=== PATIENT | male | born 1945 | race African-American/Black ===

== ENCOUNTER 2017-02-17 06:42 | Inpatient (IN) | payer MEDICARE, MEDICAID ==
[~2017-02-17] VITALS: Ht 177.8 cm; Wt 85.7 kg
[2017-02-17] MEDS ORDERED: MORPHINE SULFATE 4 MG/ML CPJ (NOT FOR IM USE) IV STA (07:12)
[2017-02-17] MEDS ORDERED: ONDANSETRON HCL 4MG/2ML VIAL IV STA (07:12)
[2017-02-17] MEDS ORDERED: ASPIRIN 81MG TABLET PO STA (07:12)
[2017-02-17 07:31] LABS: EOSINOPHILS % 3.4 % (0.0-5.0); HEMATOCRIT. 46.3 % (42.0-52.0); HEMOGLOBIN. 15.7 g/dL (14.0-18.0); LYMPHOCYTES % 22.6 % (20.0-50.0); MEAN CORPUSCULAR HEMOGLOBIN 30.8 pg (28.0-32.0); MEAN CORPUSCULAR VOLUME 90.9 fL (80.0-94.0); MEAN PLATELET VOLUME 8.2 fl (7.4-10.4); MONOCYTES % 9.1 % (2.0-8.0); NEUTROPHILS % 63.9 % (40.0-76.0); PLATELET 238 x1000/uL (130-400); RED BLOOD CELL COUNT 5.09 mill/uL (4.7-6.1); RED CELL DISTRIBUTION WIDTH 13.5 % (11.6-14.6)
[2017-02-17 07:44] LABS: D-DIMER 1.74 mg/L FEU (<0.50); INR 1.1; PARTIAL THROMBOPLASTIN TIME 26.9 sec (23.4-31.0); PROTHROMBIN TIME 11.3 sec (9.4-11.6)
[2017-02-17 07:49] LABS: CARBON DIOXIDE 27 mEq/L (21-32); CHLORIDE 106 mEq/L (98-107); TROPONIN I < 0.02 ng/mL (0.00-0.04)
[2017-02-17] MEDS ORDERED: IOHEXOL-350 100 ML BOTTLE ONE (11:44)
[2017-02-17 12:00] VITALS: BP 112/70
[2017-02-17 12:10] VITALS: BP 112/70
[2017-02-17] MEDS: AMLODIPINE 2.5MG TABLET PO SCH (14:19)
[2017-02-17] MEDS: ENOXAPARIN 40MG/0.4ML SYR SUBCUT SCH (14:20)
[2017-02-17 16:00] VITALS: BP 98/70
[2017-02-17] MEDS ORDERED: ONDANSETRON HCL 4MG/2ML VIAL IV PRN (17:00)
[2017-02-17] MEDS ORDERED: IPRATROPIUM/ALBUTEROL 0.5-3(2.5)MG/3ML NEB INH PRN (17:00)
[2017-02-17] MEDS ORDERED: DIPHENHYDRAMINE 50MG/ML VIAL IV PRN (17:00)
[2017-02-17] MEDS ORDERED: ACETAMINOPHEN 325MG TABLET PO PRN (17:00)
[2017-02-17] MEDS ORDERED: CLONIDINE 0.1MG TABLET PO PRN (17:00)
[2017-02-17] MEDS ORDERED: HYDROCODONE/APAP 7.5/325MG 1 TAB TABLET PO PRN (17:00)
[2017-02-17 20:00] VITALS: BP 105/71
[2017-02-17 20:21] VITALS: BP 105/71
[2017-02-18] VITALS: BP 135/103
[2017-02-18 04:00] VITALS: BP 114/84
[2017-02-18 06:12] LABS: BASOPHILS % 0.7 % (0.0-2.0); EOSINOPHILS % 3.5 % (0.0-5.0); HEMATOCRIT. 44.2 % (42.0-52.0); LYMPHOCYTES % 23.3 % (20.0-50.0); MEAN CORPUSCULAR HEMOGLOBIN 31.1 pg (28.0-32.0); MEAN CORPUSCULAR VOLUME 91.5 fL (80.0-94.0); MEAN PLATELET VOLUME 8.3 fl (7.4-10.4); NEUTROPHILS % 61.5 % (40.0-76.0); PLATELET 221 x1000/uL (130-400); RED BLOOD CELL COUNT 4.83 mill/uL (4.7-6.1); RED CELL DISTRIBUTION WIDTH 13.7 % (11.6-14.6)
[2017-02-18 06:19] LABS: CLARITY URINE CLEAR (CLEAR); COLOR URINE YELLOW (YELLOW); GLUCOSE URINE NEGATIVE (NEGATIVE); KETONES URINE NEGATIVE (NEGATIVE); LEUKOCYTE ESTERASE URINE NEGATIVE (NEGATIVE); NITRITE URINE NEGATIVE (NEGATIVE); OCCULT BLOOD URINE NEGATIVE (NEGATIVE); PH URINE 7.5 (4.5-8.0); PROTEIN URINE NEGATIVE (NEGATIVE); UROBILINOGEN URINE 0.2 E.U./dL (0.2-1.0)
[2017-02-18 06:36] LABS: *AMPHETAMINES SCREEN URINE NEGATIVE (NEGATIVE); *BARBITURATES SCREEN URINE NEGATIVE (NEGATIVE); *BENZODIAZEPINES SCREEN URINE NEGATIVE (NEGATIVE); *COCAINE SCREEN URINE NEGATIVE (NEGATIVE); CANNABINOID URINE SCREEN NEGATIVE (NEGATIVE); METHADONE URINE SCREEN NEGATIVE (NEGATIVE); OPIATES URINE SCREEN NEGATIVE (NEGATIVE); PHENCYCLIDINE URINE SCREEN NEGATIVE (NEGATIVE)
[2017-02-18] MEDS ORDERED: REGADENOSON 0.4 MG/5 ML IV SCH (07:15)
[2017-02-18 08:00] VITALS: BP 112/74
[2017-02-18 08:17] LABS: CARBON DIOXIDE 29 mEq/L (21-32); CHLORIDE 102 mEq/L (98-107); HDL CHOLESTEROL 39 mg/dL (40-59); LDL CHOLESTEROL 74 mg/dL (5-100); TROPONIN I < 0.02 ng/mL (0.00-0.04)
[2017-02-18] MEDS ORDERED: ASPIRIN 325MG EC TABLET PO SCH (09:00)
[2017-02-18] MEDS ORDERED: REGADENOSON 0.4 MG/5 ML IV ONE (09:41)
[2017-02-18] MEDS: AMLODIPINE 2.5MG TABLET PO SCH (10:55)
[2017-02-18] MEDS: ENOXAPARIN 40MG/0.4ML SYR SUBCUT SCH (10:55)
[2017-02-18 12:00] VITALS: BP 117/71
[2017-02-18 12:17] VITALS: BP 112/80
== END 2017-02-18 14:46 | disposition home or self-care (01) | DRG 206 ==
LOC: ER 07:15 → ENRESERV 09:59 → 7WST 11:06 → EDBEDREQ 11:08 → EDBEDREQTM 11:08
PROVIDERS: ADMIT Internal Medicine; ATTEND Internal Medicine
DX: M94.0 Chondrocostal junction syndrome [Tietze] (principal); I11.9 Hypertensive heart disease without heart failure; I24.9 Acute ischemic heart disease, unspecified; D63.8 Anemia in other chronic diseases classified elsewhere; R79.1 Abnormal coagulation profile; Z86.73 Personal history of transient ischemic attack (TIA), and cerebral infarction without residual deficits; Z88.0 Allergy status to penicillin; Z90.49 Acquired absence of other specified parts of digestive tract
CPT/HCPCS: 36415; 71010; 71275; 78452; 80048; 80053; 80061; 80305; 81003; 83690; 83880; 84443; 84484; 85025; 85379; 85610; 85730; 87040; 87086; 93005; 93017; 93306; 93970; 96374; 99285; A9500; J1650; J2270; J2405; J2785; Q9967

== ENCOUNTER 2017-05-25 07:57 | Emergency (ER) | payer MEDICARE, MEDICAID ==
[~2017-05-25] VITALS: Ht 177.8 cm; Wt 83.0 kg
[2017-05-25 10:16] VITALS: BP 115/73
[2017-05-25] MEDS ORDERED: ACETAMINOPHEN 500MG TABLET PO ONE (11:00)
== END 2017-05-25 11:12 | disposition home or self-care (01) ==
LOC: ER 08:22
DX: S39.012A Strain of muscle, fascia and tendon of lower back, initial encounter (principal); N40.0 Benign prostatic hyperplasia without lower urinary tract symptoms; Z88.0 Allergy status to penicillin; Z90.49 Acquired absence of other specified parts of digestive tract; X58.XXXA Exposure to other specified factors, initial encounter; Y93.89 Activity, other specified; Y92.89 Other specified places as the place of occurrence of the external cause; Y99.8 Other external cause status
CPT/HCPCS: 99282

== ENCOUNTER 2018-06-26 11:48 | Inpatient (IN) | payer MEDICARE, MEDICAID ==
[~2018-06-26] VITALS: Ht 177.8 cm; Wt 85.3 kg
[2018-06-26] MEDS ORDERED: SODIUM CHLORIDE 0.9% 500 ML IV ONE (14:57)
[2018-06-26 15:55] LABS: CHLORIDE 103 mEq/L (98-107)
[2018-06-26 15:57] LABS: BASOPHILS % 0.3 % (0.0-2.0); EOSINOPHILS % 0.2 % (0.0-5.0); HEMATOCRIT. 45.5 % (42.0-52.0); HEMOGLOBIN. 15.7 g/dL (14.0-18.0); INR 1.1; LYMPHOCYTES % 11.1 % (20.0-50.0); MEAN CORPUSCULAR HEMOGLOBIN 31.5 pg (28.0-32.0); MEAN CORPUSCULAR VOLUME 91.4 fL (80.0-94.0); MEAN PLATELET VOLUME 8.3 fl (7.4-10.4); MONOCYTES % 5.8 % (2.0-8.0); NEUTROPHILS % 82.6 % (40.0-76.0); PARTIAL THROMBOPLASTIN TIME 25.4 sec (23.4-31.0); PLATELET 177 x1000/uL (130-400); PROTHROMBIN TIME 10.7 sec (9.1-11.1); RED BLOOD CELL COUNT 4.98 mill/uL (4.7-6.1); RED CELL DISTRIBUTION WIDTH 13.9 % (11.6-14.6)
[2018-06-26 15:59] LABS: ETHANOL BLOOD < 10 mg/dL
[2018-06-26 16:03] LABS: CREATINE KINASE 44 IU/L (39-308)
[2018-06-26] MEDS ORDERED: ACETAMINOPHEN 325MG TABLET PO PRN (17:00)
[2018-06-26] MEDS ORDERED: ONDANSETRON HCL 4MG/2ML INJ IV PRN (17:00)
[2018-06-26 20:43] LABS: CLARITY URINE CLEAR (CLEAR); COLOR URINE YELLOW (YELLOW); KETONES URINE TRACE (NEGATIVE); LEUKOCYTE ESTERASE URINE NEGATIVE (NEGATIVE); NITRITE URINE NEGATIVE (NEGATIVE); OCCULT BLOOD URINE NEGATIVE (NEGATIVE); PH URINE 6.5 (4.5-8.0); PROTEIN URINE NEGATIVE (NEGATIVE); SPECIFIC GRAVITY URINE 1.018 (1.005-1.030); UROBILINOGEN URINE 0.2 E.U./dL (0.2-1.0)
[2018-06-26 20:55] LABS: *BARBITURATES SCREEN URINE NEGATIVE (NEGATIVE)
[2018-06-26 20:57] LABS: *AMPHETAMINES SCREEN URINE NEGATIVE (NEGATIVE); *BENZODIAZEPINES SCREEN URINE NEGATIVE (NEGATIVE); *COCAINE SCREEN URINE NEGATIVE (NEGATIVE); CANNABINOID URINE SCREEN NEGATIVE (NEGATIVE); METHADONE URINE SCREEN NEGATIVE (NEGATIVE); OPIATES URINE SCREEN NEGATIVE (NEGATIVE); PHENCYCLIDINE URINE SCREEN NEGATIVE (NEGATIVE)
[2018-06-27] VITALS (7 sets, daily range): BP systolic 113–164; BP diastolic 67–94
[2018-06-27 07:03] LABS: BASOPHILS % 0.7 % (0.0-2.0); EOSINOPHILS % 2.2 % (0.0-5.0); LYMPHOCYTES % 19.7 % (20.0-50.0); MEAN CORPUSCULAR HEMOGLOBIN 31.2 pg (28.0-32.0); MEAN CORPUSCULAR VOLUME 91.3 fL (80.0-94.0); MEAN PLATELET VOLUME 8.8 fl (7.4-10.4); MONOCYTES % 9.7 % (2.0-8.0); NEUTROPHILS % 67.7 % (40.0-76.0); PLATELET 169 x1000/uL (130-400); RED CELL DISTRIBUTION WIDTH 13.6 % (11.6-14.6)
[2018-06-27 07:12] LABS: CHLORIDE 108 mEq/L (98-107)
[2018-06-27] MEDS ORDERED: REGADENOSON 0.4 MG/5 ML IV ONE (12:15)
[2018-06-27] MEDS ORDERED: MEMA5TAB7 PO (13:02)
[2018-06-27] MEDS ORDERED: OMEP20CA10 PO (13:02)
[2018-06-27] MEDS ORDERED: CYAN500T2 PO (13:02)
[2018-06-27] MEDS ORDERED: CHOL20004 PO (13:02)
[2018-06-27] MEDS ORDERED: ASCO500C15 PO (13:02)
[2018-06-27] MEDS ORDERED: LIDOCAINE HCL 2% JELLY 5ML TOP NR (15:30)
[2018-06-27] MEDS: DEXT 5%/0.45% NACL 1000ML 1,000 ML IV SCH (16:59)
[2018-06-28] VITALS: BP 147/88
[2018-06-28] MEDS: DEXT 5%/0.45% NACL 1000ML 1,000 ML IV SCH ×3 (02:53→21:57)
[2018-06-28 04:00] VITALS: BP 137/87
[2018-06-28 08:00] VITALS: BP 139/89
[2018-06-28] MEDS ORDERED: REGADENOSON 0.4 MG/5 ML IV ONE (08:45)
[2018-06-28 12:00] VITALS: BP 141/85
[2018-06-28] MEDS ORDERED: DOCUSATE SODIUM 100MG CAPSULE PO NR (14:15)
[2018-06-28 16:00] VITALS: BP 130/85
[2018-06-28 21:30] LABS: TOTAL IRON BINDING CAPACITY 261 ug/dL (250-450)
[2018-06-28 21:46] LABS: FOLIC ACID (FOLATE) SERUM 11.1 ng/mL (>5.38)
[2018-06-29] VITALS: BP 121/72
[2018-06-29 04:00] VITALS: BP 120/65
[2018-06-29 08:00] VITALS: BP 120/77
[2018-06-29] MEDS ORDERED: IOHEXOL-350 100 ML BOTTLE ONE ×2 (09:12→09:16)
[2018-06-29] MEDS: METOPROLOL TARTRATE 25MG TABLET PO SCH ×2 (11:32→21:41)
[2018-06-29 12:00] VITALS: BP 131/76
[2018-06-29] MEDS: DEXT 5%/0.45% NACL 1000ML 1,000 ML IV SCH (14:15)
[2018-06-29 16:00] VITALS: BP 125/68
[2018-06-29 18:36] LABS: BASOPHILS % 0.5 % (0.0-2.0); CHLORIDE 105 mEq/L (98-107); EOSINOPHILS % 3.2 % (0.0-5.0); HEMATOCRIT. 41.5 % (42.0-52.0); HEMOGLOBIN. 14.4 g/dL (14.0-18.0); LYMPHOCYTES % 16.6 % (20.0-50.0); MEAN CORPUSCULAR HEMOGLOBIN 31.7 pg (28.0-32.0); MEAN CORPUSCULAR VOLUME 91.6 fL (80.0-94.0); MEAN PLATELET VOLUME 8.6 fl (7.4-10.4); MONOCYTES % 10.6 % (2.0-8.0); NEUTROPHILS % 69.1 % (40.0-76.0); PLATELET 151 x1000/uL (130-400); RED BLOOD CELL COUNT 4.53 mill/uL (4.7-6.1); RED CELL DISTRIBUTION WIDTH 13.7 % (11.6-14.6)
[2018-06-29 20:00] VITALS: BP 131/80
[2018-06-29] MEDS: DOCUSATE SODIUM 100MG CAPSULE PO SCH (21:41)
[2018-06-30] VITALS: BP 102/62
[2018-06-30] MEDS: DEXT 5%/0.45% NACL 1000ML 1,000 ML IV SCH (02:13)
[2018-06-30 04:00] VITALS: BP 118/69
[2018-06-30 06:40] LABS: BASOPHILS % 0.5 % (0.0-2.0); EOSINOPHILS % 3.4 % (0.0-5.0); HEMATOCRIT. 43.2 % (42.0-52.0); HEMOGLOBIN. 15.1 g/dL (14.0-18.0); LYMPHOCYTES % 15.4 % (20.0-50.0); MEAN CORPUSCULAR HEMOGLOBIN 32.2 pg (28.0-32.0); MEAN CORPUSCULAR VOLUME 92.1 fL (80.0-94.0); MEAN PLATELET VOLUME 8.5 fl (7.4-10.4); MONOCYTES % 10.9 % (2.0-8.0); NEUTROPHILS % 69.8 % (40.0-76.0); PLATELET 151 x1000/uL (130-400); RED BLOOD CELL COUNT 4.69 mill/uL (4.7-6.1); RED CELL DISTRIBUTION WIDTH 13.5 % (11.6-14.6)
[2018-06-30 07:39] LABS: CHLORIDE 104 mEq/L (98-107)
[2018-06-30 08:00] VITALS: BP 109/81
[2018-06-30] MEDS: METOPROLOL TARTRATE 25MG TABLET PO SCH (08:55)
[2018-06-30] MEDS: DOCUSATE SODIUM 100MG CAPSULE PO SCH (08:55)
[2018-06-30 12:00] VITALS: BP 111/71
[2018-06-30] MEDS ORDERED: CARBIDOPA/LEVODOPA 25/100MG TABLET PO SCH (14:00)
[2018-06-30] MEDS ORDERED: METO25TA6 PO (14:17)
[2018-06-30 16:13] VITALS: BP 119/66
[2018-06-30 18:00] VITALS: BP 110/68
== END 2018-06-30 17:34 | disposition home or self-care (01) | DRG 74 ==
LOC: ER 11:48 → 7WST 16:16 → EDBEDREQ 16:18 → ENRESERV 21:15
PROVIDERS: ADMIT Internal Medicine; ATTEND Internal Medicine
PROC: 4A00X4Z Measurement of Central Nervous Electrical Activity, External Approach (ICD-10-PCS; principal; 2018-06-29)
DX: G90.8 Other disorders of autonomic nervous system (principal); K59.00 Constipation, unspecified; M48.02 Spinal stenosis, cervical region; F03.90 Unspecified dementia, unspecified severity, without behavioral disturbance, psychotic disturbance, mood disturbance, and anxiety; I11.9 Hypertensive heart disease without heart failure; E86.0 Dehydration; M19.90 Unspecified osteoarthritis, unspecified site; R26.9 Unspecified abnormalities of gait and mobility; Z86.73 Personal history of transient ischemic attack (TIA), and cerebral infarction without residual deficits; Z90.49 Acquired absence of other specified parts of digestive tract; Z88.0 Allergy status to penicillin; Z88.8 Allergy status to other drugs, medicaments and biological substances
CPT/HCPCS: 36415; 70496; 70498; 70551; 71045; 71275; 78452; 80048; 80061; 80305; 82550; 82607; 82746; 83540; 83550; 83880; 84443; 84484; 93005; 93017; 93306; 93880; 93970; 97116; 97162; 97166; 97530; 97535; 99285; A9500; J2785; J7040; Q9967

== ENCOUNTER 2019-12-25 12:46 | Emergency (ER) | payer MEDICARE, MEDICAID ==
[~2019-12-25] VITALS: Ht 180.3 cm; Wt 82.0 kg
[~2019-12-25 12:46] MED LIST: ASCO500C15 PO; CHOL20004 PO; CYAN500T66 PO; MEMA5TAB7 PO; METO25TA6 PO; OMEP20CA14 PO
[2019-12-25 12:48] VITALS: BP 145/95
[2019-12-25] MEDS ORDERED: KETOROLAC 30MG/ML VIAL IM ONE (13:15)
== END 2019-12-25 14:55 | disposition home or self-care (01) ==
LOC: ER 12:46
DX: M54.5 Low back pain (principal); M62.830 Muscle spasm of back; Z90.49 Acquired absence of other specified parts of digestive tract; Z88.0 Allergy status to penicillin; Z79.899 Other long term (current) drug therapy; V49.88XA Car occupant (driver) (passenger) injured in other specified transport accidents, initial encounter; Y93.89 Activity, other specified; Y92.89 Other specified places as the place of occurrence of the external cause; Y99.8 Other external cause status
CPT/HCPCS: 96372; 99283; J1885